=== PATIENT | female | born 1940 | race Two or more races ===

== ENCOUNTER 2022-03-10 11:59 | Outpatient (REF) | payer MEDICARE, SELFPAY ==
[2022-03-10 12:48] LABS: Influenza A PCR NEGATIVE (Negative); Influenza B PCR NEGATIVE (Negative); Resp Syncy Virus RNA Qual PCR NEGATIVE (Negative); SARS COV2 PCR INHOUSE NEGATIVE (Negative)
== END 2022-03-10 12:00 | disposition home or self-care (01) ==
LOC: HO.LNP 11:59
PROVIDERS: Visit Provider Physician Assistant
DX: Z20.822 Contact with and (suspected) exposure to COVID-19 (principal); R53.81 Other malaise
CPT/HCPCS: 0241U

== ENCOUNTER 2022-09-17 09:28 | Outpatient (REF) | payer MEDICARE, SELFPAY ==
[2022-09-17 11:12] LABS: MANUAL DIFF FLAG NO
[2022-09-17 11:20] LABS: Basophils Percent Auto 0.6 % (0-2); Eosinophils Absolute Auto 0.1 X10*3/uL (0.0-0.4); Eosinophils Percent Auto 2.7 % (0-4); Hematocrit 38.1 % (37.0-47.0); Hemoglobin 12.2 g/dl (12.0-16.0); Imm Gran Abs Auto 0.01 X10*3/uL (0.00-0.03); Imm Gran Pct Auto 0.2 % (0.0-0.4); Lymphocytes Absolute Auto 1.3 X10*3/uL (1.2-4.9); Lymphocytes Percent Auto 24.3 % (20-40); Mean Corpuscular Volume 87.6 fL (80.0-98.0); Monocytes Absolute Auto 0.4 X10*3/uL (0.1-1.2); Monocytes Percent Auto 7.5 % (2-11); Neutrophils Absolute Auto 3.4 x10*3/uL (2.0-8.3); Neutrophils Percent Auto 64.7 % (45-73); Platelet Count 120 X10*3/uL (160-400); Red Blood Count 4.35 X10*6/uL (4.20-5.50); Red Cell Distribution Width 14.8 % (11.0-16.0); White Blood Count 5.2 X10*3/uL (4.8-10.8)
[2022-09-17 13:06] LABS: Alanine Aminotransferase 18 U/L (0-31); Anion Gap 13 (12-20); Aspartate Amino Transferase 24 U/L (5-31); Blood Urea Nitrogen 21 mg/dL (9-16); Calcium 8.9 mg/dL (8.4-10.2); Carbon Dioxide 27 mmol/L (22-29); Chloride 105 mmol/L (96-108); Cholesterol 109 mg/dL; Estimated Glomerular Filt Rate > 60; Glucose Fasting 94 mg/dL (60-99); HDL Cholesterol 53 mg/dL; Iron 51 mcg/dL (30-160); LDL Cholesterol Calculated 40 mg/dl; Percent Iron Saturation 19 % (15-50); Potassium 3.8 mmol/L (3.3-5.1); Sodium 141 mmol/L (135-145); Total Iron Binding Capacity 270 mcg/dL (228-428); Triglycerides 80 mg/dL; Unsaturated Iron Binding 219 ug/dL
[2022-09-17 13:26] LABS: TSH reflex Free T4 2.88 uIU/mL (0.32-4.0); Vitamin D 25-OH Total 27.5 ng/mL (>30)
== END 2022-09-17 09:29 | disposition home or self-care (01) ==
LOC: HO.HMGCLDS 09:28
PROVIDERS: PCP Internal Medicine; Visit Provider Internal Medicine
DX: I48.0 Paroxysmal atrial fibrillation (principal); N18.30 Chronic kidney disease, stage 3 unspecified; D64.9 Anemia, unspecified; Z86.73 Personal history of transient ischemic attack (TIA), and cerebral infarction without residual deficits
CPT/HCPCS: 36415; 80048; 80061; 82306; 83540; 84443; 84450; 84460; 85025

== ENCOUNTER 2022-10-08 14:40 | Outpatient (AMB) | payer MEDICARE, SELFPAY ==
[2022-10-08 14:43] VITALS: BP 134/60; PULSE 69; O2SAT 95; BMI 21.7
--- NOTE | 2022-10-08 14:43 | MHC.PC.OV ---
Vital Signs 10/08/22 14:43 Height 5 ft Weight 111 lb BMI 21.7 BP 134/60 Blood Pressure Location Rt brachial Position Sitting Pulse 69 Pulse Source Pulse Oximeter Pulse Oximetry (%) 95 Oxygen Delivery Method Room Air Intake Visit Reasons: 3 Month follow up, needs PE booked for 2022 Intake Note: Pt is here today for her 3 months f/u and she also c/o a cough Allergies No Known Allergies Allergy (Verified 06/15/25 08:45) Medication List - Last Reconciled 12/01/22 by Aida Cheney MD apixaban (Eliquis) 2.5 mg PO BID ascorbate calcium (vitamin C) 500 mg PO DAILY atorvastatin 80 mg PO DAILY cholecalciferol (vitamin D3) 1,250 mcg PO QWEEK 3 months metoprolol succinate ER 25 mg PO DAILY Tobacco use date assessed: 10/08/22 Fall risk assessment: No Falls in past year Last assessed Fall Risk: 10/08/22 [facility] Medical History (Updated 03/15/25 @ 09:42 by Lucretia Woo NP) Cervicalgia Hyperlipidemia Hx of syncope Anticoagulated by anticoagulation treatment Vitamin D deficiency Anemia History of CVA (cerebrovascular accident) Paroxysmal atrial fibrillation Eczematous dermatitis Seasonal allergies Osteoarthritis Thrombocytopenia Aortic insufficiency Chronic left shoulder pain Right rotator cuff tear Surgical History History of repair of right rotator cuff Family History Other No significant family history Social History Housing: House Alcohol intake: never Patient Tobacco Use Status: Never used Tobacco e-Cigarette/Vaping Use: Never Used Second Hand Smoke Exposure: No service: No Current occupational status: retired 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 , 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 Current occupational exposures/hazards: No Hearing needs: No Vision needs: Yes Questionnaire Thrive Questionnaire Date Thrive assessed: 04/07/21 Physical exam (Primary Care) Vital Signs: Last Vital Signs Pulse 69 10/08/22 14:43 BP 134/60 10/08/22 14:43 Pulse Ox 95 10/08/22 14:43 Oxygen Delivery Method Room Air 10/08/22 14:43 BMI result Body Mass Index 21.7 Tobacco/Smoking Status: Tobacco use Status Tobacco use date assessed 10/08/22 10/08/22 15:44 Patient Tobacco Use Status Never used Tobacco 10/08/22 15:44 e-Cigarette/Vaping Use Never Used 10/08/22 15:44 Thrive Assessment: Date of Thrive Assessment Date Thrive assessed 04/07/21 10/08/22 15:44 Immunizations pneumoc 20-millie conj-dip cr(PF) 0.5 mL IM syringe Performing Provider: Aida Cheney MD Performing Location: [facility] Administered by: Ele Camacho CMA on 10/08/22 15:43 Dose Route Admin Location Dispensed Lot Number Expiration Date [facility] Quenching Car Operator 0.5 mL IM Right Deltoid 0.5 mL [id number] 01/04/24 [email or web address] Total Dispensed Waste 0.5 mL 0 % VIS Given Date VIS Provided VIS Publication Date 10/08/22 Single Vaccine 21 Eligibility Eligibility Date Funding Source Not [facility] Eligible 10/08/22 Private Coding Level of Care Code Admin Sign Off/No Billing Diagnoses Vitamin D deficiency E55.9 History of CVA (cerebrovascular accident) Z86.73 Paroxysmal atrial fibrillation I48.0 Thrombocytopenia D69.6
--- NOTE | 2022-10-08 15:43 | MHC.PC.OV ---
Vital Signs 10/08/22 14:43 Height 5 ft Weight 111 lb BMI 21.7 BP 134/60 Blood Pressure Location Rt brachial Position Sitting Pulse 69 Pulse Source Pulse Oximeter Pulse Oximetry (%) 95 Oxygen Delivery Method Room Air Intake Visit Reasons: 3 Month follow up, needs PE booked for 2022 Allergies No Known Allergies Allergy (Verified 12/01/22 01:03) Medication List - Last Reconciled 12/01/22 by Aida Cheney MD apixaban (Eliquis) 2.5 mg PO BID ascorbate calcium (vitamin C) 500 mg PO DAILY atorvastatin 80 mg PO DAILY cholecalciferol (vitamin D3) 1,250 mcg PO QWEEK 3 months metoprolol succinate ER 25 mg PO DAILY Tobacco use date assessed: 10/08/22 HPI 3 Month follow up, needs PE booked for 2022 HPI Details 82-year-old lady with history of CVA, paroxysmal atrial fibrillation, osteoarthritis, paroxysmal atrial fibrillation, chronic kidney disease stage 3, and osteoarthritis, here today for her follow-up. She has been feeling well, with no complaints at present time, compliant with taking her medications. Recent fasting labs done showed presence of normal hemoglobin hematocrit, with low platelet count, no abnormal bleeding tendencies reported her fasting lipids, fasting blood sugar level, electrolytes and renal function are within normal limits, but vitamin-D is low. . [facility] Medical History (Updated 12/01/22 @ 01:24 by Aida Cheney MD) Anemia Aortic insufficiency Chronic left shoulder pain Eczematous dermatitis History of CVA (cerebrovascular accident) Osteoarthritis Paroxysmal atrial fibrillation Right rotator cuff tear Seasonal allergies Thrombocytopenia Vitamin D deficiency Surgical History History of repair of right rotator cuff Family History Other No significant family history Social History Housing: House Alcohol intake: never Patient Tobacco Use Status: Never used Tobacco e-Cigarette/Vaping Use: Never Used Second Hand Smoke Exposure: No service: No Current occupational status: retired 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 , 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 Current occupational exposures/hazards: No Hearing needs: No Vision needs: Yes Questionnaire Thrive Questionnaire Date Thrive assessed: 04/07/21 Review of Systems Const Denies body aches, Denies fatigue, Denies fever(s) and Denies headache(s) Eyes Denies change in vision ENT Denies dizziness, Denies headache(s), Denies nasal congestion and Denies sore throat Card Denies chest pain, Denies lightheadedness, Denies palpitations and Denies dyspnea Resp Denies chest congestion, Denies cough, Denies dyspnea and Denies wheezing GI Denies abdominal pain, Denies change in bowel habits and Denies heartburn Denies hematuria, Denies urinary frequency, Denies dysuria and Denies urinary urgency Musc Reports no additional complaints Skin/Breast Denies breast pain, Denies breast mass, Denies lesions and Denies rash Neuro Denies dizziness and Denies headache(s) Endo Denies fatigue, Denies polydipsia, Denies polyuria and Denies palpitations Oskar/Lymph Denies easy bruising Aller/Immun Denies seasonal rhinorrhea and Denies wheezing Physical exam (Primary Care) Vital Signs: Last Vital Signs Pulse 69 10/08/22 14:43 BP 134/60 10/08/22 14:43 Pulse Ox 95 10/08/22 14:43 Oxygen Delivery Method Room Air 10/08/22 14:43 BMI result Body Mass Index 21.7 Tobacco/Smoking Status: Tobacco use Status Tobacco use date assessed 10/08/22 10/08/22 15:44 Patient Tobacco Use Status Never used Tobacco 10/08/22 15:44 e-Cigarette/Vaping Use Never Used 10/08/22 15:44 Thrive Assessment: Date of Thrive Assessment Date Thrive assessed 04/07/21 10/08/22 15:44 Const General: cooperative, comfortable and no acute distress Nutritional Appearance: average body habitus Orientation/consciousness: patient oriented x3 HENMT Ears: external ears normal General nose exam: Normal external nose present Mouth: Normal oral and palatal mucosa present, oropharynx normal and moist mucous membranes Neck Neck: Yes full ROM, Yes no lymphadenopathy and Yes supple Thyroid: Thyroid normal Resp Effort & Inspection: normal respiratory effort and able to speak in complete sentences Auscultation: clear to auscultation bilaterally Cardio Rate: regular rate Rhythm: regular rhythm Heart sounds: S1 normal heart sound present and S2 normal heart sound present GI Palpation (GI): Soft to palpation, nontender and no guarding Auscultation: normal bowel sounds Back/Spine/Pelvis Back: No back tenderness Skin General skin exam: no rashes or lesions noted Neuro General: patient oriented x3 and no focal motor deficits Extrem General: Yes full ROM, Yes no joint enlargement, Yes no pedal edema, Yes no calf tenderness and Yes normal gait Immunizations pneumoc 20-millie conj-dip cr(PF) Performing Provider: Aida Cheney MD Administered by: Ele Camacho CMA on 10/08/22 15:43 Dose Route Admin Location Lot Number Expiration Date [employer] 0.5 mL IM Right Deltoid [id number] 01/04/24 7006-8416-44 [email or web address] VIS Given Date VIS Provided VIS Publication Date 10/08/22 Single Vaccine 21 Eligibility Eligibility Date Funding Source Not [facility] Eligible 10/08/22 Private Results Reviewed Results Reviewed: Name: Dora Starkey Age/Sex: 81/F : 1940 Unit#: [id number] Attend Dr: Aida Cheney MD Re09/17/22 Status: DEP REF Location: [facility] Disch: SPEC : [id number] SOFÍA: 09/17/22 STATUS: COMP REQ : [id number] RECD: 09/17/22-[address]: Aida Cheney MD COMP: 09/17/22 ENTERED: 09/17/[address]: ORDERED: CBC Auto Diff Test Result Flag Reference Site WBC 5.2 4.8-10.8 X10*3/uL RBC 4.35 4.20-5.50 X10*6/uL HGB 12.2 12.0-16.0 g/dl HCT 38.1 37.0-47.0 % MCV 87.6 80.0-98.0 fL MCH 28.0 27.0-33.0 pg MCHC 32.0 31.0-35.0 g/dl RDW 14.8 11.0-16.0 % PLT 120 L 160-400 X10*3/uL MPV 11.0 9.4-12.3 fL Neut Pct Auto 64.7 45-73 % ImGran Pct Auto 0.2 0.0-0.4 % Lymp Pct Auto 24.3 20-40 % [place] Pct Auto 7.5 2-11 % Eos Pct Auto 2.7 0-4 % Baso Pct Auto 0.6 0-2 % NRBC Pct Auto 0.0 0.0-0.2 /100WBC ANC Neut Abs # 3.4 2.0-8.3 x10*3/uL ImGran Abs Auto 0.01 0.00-0.03 X10*3/uL Lymph Abs Auto 1.3 1.2-4.9 X10*3/uL [place] Abs Auto 0.4 0.1-1.2 X10*3/uL Eos Abs Auto 0.1 0.0-0.4 X10*3/uL Baso Abs Auto 0.0 0.0-0.2 X10*3/uL NRBC Abs Auto 0.000 0.0-0.012 X10*3/uL ENTERED: 09/17/[address] [facility] [address]: ORDERED: Met Prof Fast, IRON PROF, AST, ALT, Lipid Panel, Vitamin D 25-OH, TSH Rf Test Result Flag Reference Site Sodium 141 135-145 mmol/L Potassium 3.8 3.3-5.1 mmol/L CL 105 96-108 mmol/L CO2 27 22-29 mmol/L Gap 13 12-20 BUN 21 H 9-16 mg/dL Creat 0.74 0.5-1.4 mg/dL EGFR > 60 NOTE: For -[place] individuals, multiply the result by 1.210. Chronic Kidney Disease: Estimated GFR < 60 mL/min/1.73m2 Severe Kidney Disease: Estimated GFR < 15 mL/min/1.73m2 FBS 94 60-99 mg/dL CA 8.9 8.4-10.2 mg/dL Iron 51 30-160 mcg/dL TIBC 270 228-428 mcg/dL Saturation 19 15-50 % UIBC 219 ug/dL AST (GOT) 24 5-31 U/L ALT (GPT) 18 0-31 U/L Triglyceride 80 mg/dL Desirable Triglyceride: less than 150 mg/dL Borderline High Triglyceride 150-199 mg/dL High Triglyceride: 200-499 mg/dL Very High Triglyceride: greater than or equal to 5OO mg/dL Chol 109 mg/dL Desirable Cholesterol: less than 200 mg/dL Borderline High Cholesterol: 200-239 mg/dL High Cholesterol: greater than 239 mg/dL LDL Calculated 40 mg/dl Desirable LDL: less than 100 mg/dL Near Optimal/Above Optimal LDL: 110-129 mg/dL Borderline High LDL: 130-159 mg/dL High LDL: 160-189 mg/dL Very High LDL: greater than or equal to 190 mg/dL HDL 53 mg/dL Desirable HDL: greater than 40 mg/dL Note: This HDL assay may give artificially low results in patients with liver disease. Vit D 25-OH Tot 27.5 >30 ng/mL Health Based Reference Values* < 20 ng/mL Deficient 20-30 ng/mL Insufficient > 30 ng/mL Sufficient Assessment and Plan Assessment & Plan (1) Vitamin D deficiency: Code(s): E55.9 - Vitamin D deficiency, unspecified Plan: Prescription sent for high-dose vitamin-D 3 replacement to take once a week for the next 3 months. He (2) Paroxysmal atrial fibrillation: Code(s): I48.0 - Paroxysmal atrial fibrillation Plan: Currently on apixaban 2.5 mg 1 tablet taken twice a day and metoprolol succinate ER 25 mg daily (3) Thrombocytopenia: Code(s): D69.6 - Thrombocytopenia, unspecified Plan: Currently symptomatic (4) Osteoarthritis: Code(s): M19.90 - Unspecified osteoarthritis, unspecified site Plan: Takes [id number] Tylenol as needed for joint pain (5) Need for pneumococcal 20-valent conjugate vaccination: Code(s): Z23 - Encounter for immunization Plan: prevnar 20 administered today Orders: Orders Alanine Aminotransferase 04/06/23 Z86.73 - Personal history of transient ischemic attack (TIA), and cerebral infarction without residual deficits, E55.9 - Vitamin D deficiency, unspecified Aspartate Amino Transferase 04/06/23 Z86.73 - Personal history of transient ischemic attack (TIA), and cerebral infarction without residual deficits, E55.9 - Vitamin D deficiency, unspecified Basic Metabolic Panel Fasting 04/06/23 Z86.73 - Personal history of transient ischemic attack (TIA), and cerebral infarction without residual deficits, E55.9 - Vitamin D deficiency, unspecified Lipid Panel 04/06/23 Z86.73 - Personal history of transient ischemic attack (TIA), and cerebral infarction without residual deficits, E55.9 - Vitamin D deficiency, unspecified Vitamin D 25-OH Total 04/06/23 Z86.73 - Personal history of transient ischemic attack (TIA), and cerebral infarction without residual deficits, E55.9 - Vitamin D deficiency, unspecified Pneumococcal 20 Immunization 10/08/22 Z23 - Encounter for immunization Medications: New cholecalciferol (vitamin D3) 1,250 mcg PO QWEEK 13 caps 0RF 3 months E55.9 - Vitamin D deficiency, unspecified Coding Level of Care Code Est Pt Level 4 (91348) Diagnoses Vitamin D deficiency E55.9 Paroxysmal atrial fibrillation I48.0 Thrombocytopenia D69.6 Osteoarthritis M19.90 Need for pneumococcal 20-valent conjugate vaccination Z23
== END 2022-10-08 16:18 | disposition home or self-care (01) ==
LOC: HO.HMGC 14:40
PROVIDERS: PCP Internal Medicine; Visit Provider Internal Medicine
DX: E55.9 Vitamin D deficiency, unspecified (principal); Z86.73 Personal history of transient ischemic attack (TIA), and cerebral infarction without residual deficits; I48.0 Paroxysmal atrial fibrillation; D69.6 Thrombocytopenia, unspecified
CPT/HCPCS: 90471; 90677; 99214; 99499

== ENCOUNTER 2022-10-22 12:14 | Outpatient (REF) | payer MEDICARE, SELFPAY ==
[2022-10-22 13:16] LABS: Influenza A PCR NEGATIVE (Negative); Influenza B PCR NEGATIVE (Negative); Resp Syncy Virus RNA Qual PCR NEGATIVE (Negative); SARS COV2 PCR INHOUSE NEGATIVE (Negative)
== END 2022-10-22 12:15 | disposition home or self-care (01) ==
LOC: HO.LNP 12:14
PROVIDERS: Visit Provider Internal Medicine
DX: Z20.822 Contact with and (suspected) exposure to COVID-19 (principal); R09.89 Other specified symptoms and signs involving the circulatory and respiratory systems
CPT/HCPCS: 0241U

== ENCOUNTER 2023-04-01 08:14 | Outpatient (REF) | payer MEDICARE, SELFPAY ==
[2023-04-01 12:24] LABS: Alanine Aminotransferase 17 U/L (0-31); Anion Gap 15 (12-20); Aspartate Amino Transferase 23 U/L (5-31); Blood Urea Nitrogen 15 mg/dL (9-16); Calcium 8.9 mg/dL (8.4-10.2); Carbon Dioxide 22 mmol/L (22-29); Chloride 109 mmol/L (96-108); Cholesterol 94 mg/dL; Estimated Glomerular Filt Rate > 60; Glucose Fasting 92 mg/dL (60-99); HDL Cholesterol 48 mg/dL; LDL Cholesterol Calculated 34 mg/dl; Potassium 3.8 mmol/L (3.3-5.1); Sodium 142 mmol/L (135-145); Triglycerides 62 mg/dL
[2023-04-01 12:59] LABS: Vitamin D 25-OH Total 8.7 ng/mL (>30)
== END 2023-04-01 08:15 | disposition home or self-care (01) ==
LOC: HO.WFDLDS 08:14
PROVIDERS: Visit Provider Internal Medicine
DX: E55.9 Vitamin D deficiency, unspecified (principal); Z86.73 Personal history of transient ischemic attack (TIA), and cerebral infarction without residual deficits
CPT/HCPCS: 36415; 80048; 80061; 82306; 84450; 84460

== ENCOUNTER 2023-04-07 11:23 | Outpatient (AMB) | payer MEDICARE, SELFPAY ==
--- NOTE | 2023-04-07 12:24 | A.OFFPC_ITS ---
<Statement entered by Aida Cheney MD - 10/08/25 00:05> This note has been administratively?closed. Vital Signs 04/07/23 12:25 Height 5 ft Weight 106 lb 4 oz BMI 20.7 BP 110/60 Blood Pressure Location Lt brachial Position Sitting Pulse 62 Pulse Source Pulse Oximeter Pulse Oximetry (%) 100 Oxygen Delivery Method Room Air Intake Visit Reasons: 6 month f/u Allergies No Known Allergies Allergy (Verified 06/15/25 08:45) Medication List - Last Reconciled 04/07/23 by Aida Cheney MD apixaban (Eliquis) 2.5 mg PO BID ascorbate calcium (vitamin C) 500 mg PO DAILY atorvastatin 80 mg PO DAILY benzonatate 100 mg PO BID PRN cholecalciferol (vitamin D3) 1,250 mcg PO QWEEK 3 months metoprolol succinate ER 25 mg PO DAILY Tobacco use date assessed: 04/07/23 Fall risk assessment: No Falls in past year Last assessed Fall Risk: 04/07/23 Dental Screening Dental Screen Date: 04/07/23 Did you have a dental visit in the last 12 months?: No Did you have a dental problem in the last 6 months where you did not have access to dental care?: No Was dental information given to patient?: No [facility] Medical History (Updated 03/15/25 @ 09:42 by Lucretia Woo NP) Cervicalgia Hyperlipidemia Hx of syncope Anticoagulated by anticoagulation treatment Vitamin D deficiency Anemia History of CVA (cerebrovascular accident) Paroxysmal atrial fibrillation Eczematous dermatitis Seasonal allergies Osteoarthritis Thrombocytopenia Aortic insufficiency Chronic left shoulder pain Right rotator cuff tear Surgical History History of repair of right rotator cuff Family History Other No significant family history Social History Housing: House Alcohol intake: never Patient Tobacco Use Status: Never used Tobacco e-Cigarette/Vaping Use: Never Used Second Hand Smoke Exposure: No service: No Current occupational status: retired 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 How often do you have a drink containing alcohol?: Never 3. How often do you have six or more drinks on one occasion?: Never Total Score: 0 Score Reviewed/Action Taken: Yes Physical exam (Primary Care) Vital Signs: Last Vital Signs Pulse 62 04/07/23 12:25 BP 110/60 04/07/23 12:25 Pulse Ox 100 04/07/23 12:25 Oxygen Delivery Method Room Air 04/07/23 12:25 BMI result Body Mass Index 20.7 Tobacco/Smoking Status: Tobacco use Status Tobacco use date assessed 04/07/23 04/07/23 12:29 Patient Tobacco Use Status Never used Tobacco 04/07/23 12:29 e-Cigarette/Vaping Use Never Used 04/07/23 12:29 Thrive Assessment: Date of Thrive Assessment Date Thrive assessed 04/07/21 04/07/23 12:29 Results Reviewed Results Reviewed: ENTERED: 04/01/[address]: ORDERED: Met Prof Fast, AST, ALT, Lipid Panel, Vitamin D 25-OH Test Result Flag Reference Site Sodium 142 135-145 mmol/L Potassium 3.8 3.3-5.1 mmol/L CL 109 H 96-108 mmol/L CO2 22 22-29 mmol/L Gap 15 12-20 BUN 15 9-16 mg/dL Creat 0.80 0.5-1.4 mg/dL EGFR > 60 NOTE: For -[place] individuals, multiply the result by 1.210. Chronic Kidney Disease: Estimated GFR < 60 mL/min/1.73m2 Severe Kidney Disease: Estimated GFR < 15 mL/min/1.73m2 FBS 92 60-99 mg/dL CA 8.9 8.4-10.2 mg/dL AST (GOT) 23 5-31 U/L ALT (GPT) 17 0-31 U/L Triglyceride 62 mg/dL Desirable Triglyceride: less than 150 mg/dL Borderline High Triglyceride 150-199 mg/dL High Triglyceride: 200-499 mg/dL Very High Triglyceride: greater than or equal to 5OO mg/dL Chol 94 mg/dL Desirable Cholesterol: less than 200 mg/dL Borderline High Cholesterol: 200-239 mg/dL High Cholesterol: greater than 239 mg/dL LDL Calculated 34 mg/dl Desirable LDL: less than 100 mg/dL Near Optimal/Above Optimal LDL: 110-129 mg/dL Borderline High LDL: 130-159 mg/dL High LDL: 160-189 mg/dL Very High LDL: greater than or equal to 190 mg/dL HDL 48 mg/dL Desirable HDL: greater than 40 mg/dL Note: This HDL assay may give artificially low results in patients with liver disease. Vit D 25-OH Tot 8.7 >30 ng/mL Health Based Reference Values* < 20 ng/mL Deficient 20-30 ng/mL Insufficient > 30 ng/mL Sufficient Coding Level of Care Code Admin Sign Off/No Billing Diagnoses Vitamin D deficiency E55.9 History of CVA (cerebrovascular accident) Z86.73 Thrombocytopenia D69.6 Aortic insufficiency I35.1 Anticoagulated by anticoagulation treatment Z79.01 Paroxysmal atrial fibrillation I48.0
[2023-04-07 12:25] VITALS: BP 110/60; PULSE 62; O2SAT 100; BMI 20.7
== END 2023-04-07 12:50 | disposition home or self-care (01) ==
PROVIDERS: Visit Provider Internal Medicine
DX: I48.0 Paroxysmal atrial fibrillation (principal); E55.9 Vitamin D deficiency, unspecified; D69.6 Thrombocytopenia, unspecified; I35.1 Nonrheumatic aortic (valve) insufficiency; Z79.01 Long term (current) use of anticoagulants; Z86.73 Personal history of transient ischemic attack (TIA), and cerebral infarction without residual deficits
CPT/HCPCS: 99499

== ENCOUNTER 2023-04-30 18:36 | Emergency (ER) | payer MEDICARE, SELFPAY ==
--- NOTE | ~2023-04-30 | XR_ITS ---
EXAMINATION: XR CHEST CLINICAL INFORMATION: Shortness of breath. COMPARISON: None available. TECHNIQUE: 2 views of the chest were obtained. FINDINGS: Normal appearance of the cardiomediastinal silhouette. Mild central peribronchial thickening and diffuse interstitial prominence. More focal subtle airspace opacity projecting over the right upper lobe. No pleural effusion or pneumothorax. Widening of the retrosternal clear space, suggesting hyperexpansion and air-trapping. Thoracic spondylosis. No acute osseous findings. XR/XR chest 2V IMPRESSION: Constellation of findings are suggestive of small airways disease versus atypical/viral infection with an early infiltrate in the right upper lobe. Recommend a follow-up imaging after treatment to ensure adequate resolution. 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
--- NOTE | 2023-04-30 19:06 | ED.GENADULT ---
HPI - General Adult General Chief complaint: Dyspnea Stated complaint: xrays, sent from urgent care Time Seen by Provider: 05/01/23 00:26 Source: patient and family Mode of arrival: ambulatory Limitations: no limitations History of Present Illness HPI narrative: ?82-year-old female with history of CVA, afib on Eliquis?here with complaints of chest congestion, shortness of breath intermittent for the last few weeks with no reports of fevers, chills, chest pain, leg swelling or leg pain. Patient was seen urgent care care was referred into the ER for further evaluation. Related Data Home Medications Medication Instructions Recorded Confirmed ascorbate calcium (vitamin C) 500 500 mg PO DAILY 11/01/20 04/07/23 mg tablet apixaban 2.5 mg tablet (Eliquis) 2.5 mg PO BID 04/27/22 04/07/23 atorvastatin 80 mg tablet 80 mg PO DAILY 04/27/22 04/07/23 metoprolol succinate 25 mg 25 mg PO DAILY 04/27/22 04/07/23 tablet,extended release 24 hr benzonatate 100 mg capsule 100 mg PO BID PRN 04/07/23 04/07/23 Previous Rx's Medication Instructions Recorded cholecalciferol (vitamin D3) 1,250 1,250 mcg PO QWEEK 3 months #13 10/08/22 mcg (50,000 unit) capsule caps cefuroxime axetil 500 mg tablet 500 mg PO BID #14 tabs 05/01/23 doxycycline monohydrate 100 mg 100 mg PO BID #14 caps 05/01/23 capsule Allergies Allergy/AdvReac Type Severity Reaction Status Date / Time No Known Allergies Allergy Verified 04/30/23 19:08 Review of Systems Review of Systems: Yes all other systems are reviewed and are negative Constitutional: Constitutional: Reports no additional constitutional complaints, Denies body ache(s), Denies chills, Denies fever(s), Denies headache(s) and Denies weakness Eyes: Eyes: Reports no additional eye complaints and Denies change in vision ENT: Reports system reviewed and no additional complaints, except as documented, Denies dizziness, Denies headache(s), Denies nasal congestion, Denies nasal discharge and Denies neck pain Cardiovascular: Cardiovascular: Reports no additional cardiovascular complaints, Denies chest pain, Denies leg edema and Reports dyspnea Respiratory: Respiratory: Reports no additional respiratory complaints, Reports cough and Reports dyspnea Gastrointestinal: Gastrointestinal: Reports no additional gastrointestinal complaints, Denies abdominal pain, Denies diarrhea, Denies nausea and Denies vomiting Genitourinary: Genitourinary: Reports no additional female genitourinary complaints and Denies urinary incontinence Musculoskeletal: Musculoskeletal: Reports no additional musculoskeletal complaints, Denies back pain, Denies arthralgias, Denies joint swelling, Denies neck pain, Denies numbness and Denies tingling Integumentary/Breasts: Skin/Breast: Reports system reviewed and no additional complaints, except as docu and Denies rash Neurologic: Reports system reviewed and no additional complaints, except as documented, Denies dizziness, Denies headache(s), Denies numbness, Denies tingling and Denies weakness PMFSH Past Medical History Attestation statement: The following information was validated with the patient. Source: old records reviewed and nursing notes reviewed Medical History Anemia Anticoagulated by anticoagulation treatment Aortic insufficiency Chronic left shoulder pain Eczematous dermatitis History of CVA (cerebrovascular accident) Osteoarthritis Paroxysmal atrial fibrillation Right rotator cuff tear Seasonal allergies Thrombocytopenia Vitamin D deficiency Surgical History History of repair of right rotator cuff Family History Family History Other No significant family history Social History Social History Housing: House Alcohol intake: never Patient Tobacco Use Status: Never used Tobacco e-Cigarette/Vaping Use: Never Used Second Hand Smoke Exposure: No Advance Directives: Yes Advance Directives Information Provided: No Advance Directives on File: No service: No Current occupational status: retired Current occupation: used to work as a [employer] , 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 Current occupational exposures/hazards: No Hearing needs: No Vision needs: Yes Physical Exam ED Vital Signs: Vital Signs - 24 hr 04/30/23 19:08 Temperature 98.1 F Pulse Rate 71 Respiratory Rate 17 Blood Pressure 134/59 L Pulse Oximetry 98 Oxygen Delivery Method Room Air BMI result Body Mass Index 20.5 Const General: cooperative, healthy appearing, comfortable and no acute distress Orientation/consciousness: patient oriented x3 Limitations: no limitations HENMT Head: Yes normal to inspection Ears: hearing grossly normal bilaterally and TM's normal bilaterally Throat: Yes posterior oropharynx normal, Yes tonsils normal and Yes uvula midline Eyes General: appearance normal, both eyes and all related structures Pupils: Equal, round and reactive pupils present Neck Neck: Yes normal visual inspection, Yes full ROM, Yes no lymphadenopathy and Yes no meningeal signs Chest Chest palpation & inspection: normal inspection of the chest Resp Other: Mild exp wheezing right side Effort & Inspection: normal respiratory effort Cardio Rate: regular rate Rhythm: regular rhythm Peripheral pulses: Peripheral pulses 2+ throughout GI Inspection: Yes normal to inspection Palpation (GI): Soft to palpation and nontender Skin General skin exam: no rashes or lesions noted Neuro General: patient oriented x3, moves all extremities and no meningeal signs Cranial nerves: Yes Equal, round and reactive pupils present Cognition (Neuro): normal cognition Gait exam (Neuro): Normal gait present Extrem General: Yes normal to inspection, Yes no pedal edema and Yes no calf tenderness Course Course Course Narrative: This is a rapid medical exam: Additional HPI, ROS, PE not included below will be deferred to primary provider. Patient is an 82-year-old female with history of CVA, afib on Eliquis presenting to the emergency department with complaint of cough and shortness of breath for the past few weeks, symptoms have progressively worsened. Daughter reports PCP keeps referring pt to urgent care, has been seen there approximately 4 times since onset of symptoms, but today provider felt patient required labs and CXR. Denies fevers. Plan: labs, CXR, EKG Reevaluation(s) Reevaluation #1: Chest x-ray consistent with right upper lobe pneumonia. No hypoxia or tachypnea. Patient is afebrile. Well-appearing. Patient be discharged home with course of antibiotics. Patient did have some mild expiratory wheezing so will give her albuterol MDI with teaching. Reviewed reviewed worrisome signs and symptoms of when to return to the emergency room. Comfortable plan for discharge home. Medical Decision Making Medical Decision Making [facility] Narrative: ?82-year-old female with history of CVA, afib on Eliquis?coming from urgent care with reports of cough and chest congestion was some intermittent shortness of breath for the last few weeks unrelieved with supportive care at home. Patient denies any fevers, chest pain, leg swelling or leg pain, vomiting or diarrhea. Will obtain labs, chest x-ray Differential Diagnosis Differential Diagnoses: The differential diagnosis associated with the presentation includes Pneumonia Low concern for PE, ACS, malignant Admission/Observation Consideration of admission/observation: Escalation of care including admission/observation considered Curb 65 score 1-low risk, PNA can be managed outpatient Lab Data MDM Lab Attestation statement: I reviewed the patient's lab results. 04/30/23 20:25 04/30/23 20:25 Labs: Lab Results 04/30/23 04/30/23 04/30/23 Range/Units 20:25 20:25 20:25 WBC 10.9 H (4.8-10.8) X10*3/uL RBC 3.84 L (4.20-5.50) X10*6/uL Hgb 11.0 L (12.0-16.0) g/dl Hct 34.1 L (37.0-47.0) % MCV 88.8 (80.0-98.0) fL MCH 28.6 (27.0-33.0) pg MCHC 32.3 (31.0-35.0) g/dl RDW 13.9 (11.0-16.0) % Plt Count 196 D (160-400) X10*3/uL MPV 10.8 (9.4-12.3) fL Immature Gran % (Auto) 0.3 (0.0-0.4) % Neut % (Auto) 69.0 (45-73) % Lymph % (Auto) 23.5 (20-40) % [place] % (Auto) 6.3 (2-11) % Eos % (Auto) 0.5 (0-4) % Baso % (Auto) 0.4 (0-2) % Lymph # (Auto) 2.6 (1.2-4.9) X10*3/uL [place] # (Auto) 0.7 (0.1-1.2) X10*3/uL Eos # (Auto) 0.1 (0.0-0.4) X10*3/uL Baso # (Auto) 0.0 (0.0-0.2) X10*3/uL Abs Immat Gran (auto) 0.03 (0.00-0.03) X10*3/uL Absolute Neuts (auto) 7.5 (2.0-8.3) x10*3/uL Absolute Nucleated RBC 0.000 (0.0-0.012) X10*3/uL Nucleated RBC % (auto) 0.0 (0.0-0.2) /100WBC PT 13.9 H (11.1-13.3) SEC INR 1.1 (0.9-1.1) Sodium 140 (135-145) mmol/L Potassium 4.0 (3.3-5.1) mmol/L Chloride 108 (96-108) mmol/L Carbon Dioxide 24 (22-29) mmol/L Anion Gap 12 (12-20) BUN 18 H (9-16) mg/dL Creatinine 0.71 (0.5-1.4) mg/dL Estim Creat Clear Calc 43.9 Estimated GFR > 60 Random Glucose 91 (60-115) mg/dL Calcium 8.9 (8.4-10.2) mg/dL Total Bilirubin 0.5 (0.0-1.0) mg/dL AST 26 (5-31) U/L ALT 20 (0-31) U/L Alkaline Phosphatase 104 (39-117) U/L Troponin I High Sens (<3.5-17.0) ng/L B-Natriuretic Peptide (<100) pg/mL Total Protein 7.5 (6.5-8.0) g/dL Albumin 3.6 (3.5-5.0) g/dL 04/30/23 04/30/23 Range/Units 20:25 20:25 WBC (4.8-10.8) X10*3/uL RBC (4.20-5.50) X10*6/uL Hgb (12.0-16.0) g/dl Hct (37.0-47.0) % MCV (80.0-98.0) fL MCH (27.0-33.0) pg MCHC (31.0-35.0) g/dl RDW (11.0-16.0) % Plt Count (160-400) X10*3/uL MPV (9.4-12.3) fL Immature Gran % (Auto) (0.0-0.4) % Neut % (Auto) (45-73) % Lymph % (Auto) (20-40) % [place] % (Auto) (2-11) % Eos % (Auto) (0-4) % Baso % (Auto) (0-2) % Lymph # (Auto) (1.2-4.9) X10*3/uL [place] # (Auto) (0.1-1.2) X10*3/uL Eos # (Auto) (0.0-0.4) X10*3/uL Baso # (Auto) (0.0-0.2) X10*3/uL Abs Immat Gran (auto) (0.00-0.03) X10*3/uL Absolute Neuts (auto) (2.0-8.3) x10*3/uL Absolute Nucleated RBC (0.0-0.012) X10*3/uL Nucleated RBC % (auto) (0.0-0.2) /100WBC PT (11.1-13.3) SEC INR (0.9-1.1) Sodium (135-145) mmol/L Potassium (3.3-5.1) mmol/L Chloride (96-108) mmol/L Carbon Dioxide (22-29) mmol/L Anion Gap (12-20) BUN (9-16) mg/dL Creatinine (0.5-1.4) mg/dL Estim Creat Clear Calc Estimated GFR Random Glucose (60-115) mg/dL Calcium (8.4-10.2) mg/dL Total Bilirubin (0.0-1.0) mg/dL AST (5-31) U/L ALT (0-31) U/L Alkaline Phosphatase (39-117) U/L Troponin I High Sens 9.0 (<3.5-17.0) ng/L B-Natriuretic Peptide 134 H (<100) pg/mL Total Protein (6.5-8.0) g/dL Albumin (3.5-5.0) g/dL Independent Interpretation I performed an independent interpretation of an: Plain X-Ray Interpretation: I independently reviewed x-ray and agreed with radiology report I independetely reviewed EKG which shows normal sinus rhythm with a rate of 60, normal ME, normal QRS, normal QT Radiology Impression Discussion of test interpretation with radiology: I have reviewed the radiologist's reading. Radiologist Impression: he chest were obtained. FINDINGS: Normal appearance of the cardiomediastinal silhouette. Mild central peribronchial thickening and diffuse interstitial prominence. More focal subtle airspace opacity projecting over the right upper lobe. No pleural effusion or pneumothorax. Widening of the retrosternal clear space, suggesting hyperexpansion and air-trapping. Thoracic spondylosis. No acute osseous findings. XR/XR chest 2V IMPRESSION: Constellation of findings are suggestive of small airways disease versus atypical/viral infection with an early infiltrate in the right upper lobe. Recommend a follow-up imaging after treatment to ensure adequate resolution. ? 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 Independent Historian Clinical information obtained from an independent historian. History obtained from or confirmed by: Other (family member) Discharge Plan Discharge Clinical Impression: Community acquired pneumonia Patient Disposition: Home, Self-Care Instructions: Community Acquired Pneumonia (ED) Additional Instructions: Start the medicine tomorrow Use the inhaler every 4 hours as needed Return for worsening symptoms Prescriptions: New doxycycline monohydrate 100 mg capsule 100 mg PO BID Qty: 14 0RF cefuroxime axetil 500 mg tablet 500 mg PO BID Qty: 14 0RF No Action ascorbate calcium (vitamin C) 500 mg tablet 500 mg PO DAILY cholecalciferol (vitamin D3) 1,250 mcg (50,000 unit) capsule 1,250 mcg PO QWEEK 90 Days Qty: 13 0RF metoprolol succinate 25 mg tablet extended release 24 hr 25 mg PO DAILY Eliquis 2.5 mg tablet 2.5 mg PO BID atorvastatin 80 mg tablet 80 mg PO DAILY benzonatate 100 mg capsule 100 mg PO BID PRN Referrals: Aida Cheney MD [Primary Care Provider] - 10 days
[2023-04-30 19:08] VITALS: BP 134/59; PULSE 71; RESP 17; TEMP 36.7; O2SAT 98; BMI 20.5
--- NOTE | 2023-04-30 19:11 | ECG_ITS ---
Test Reason : SOB Blood Pressure : / mmHG Vent. Rate : 060 BPM Atrial Rate : 060 BPM P-R Int : 152 ms QRS Dur : 084 ms QT Int : 440 ms P-R-T Axes : 076 065 013 degrees QTc Int : 440 ms Normal sinus rhythm Nonspecific ST and T wave abnormality Abnormal ECG No previous ECGs available Referred By: Sheridan Long Electronically Signed By:SAM MCLEOD
--- NOTE | 2023-04-30 20:28 | MHC.EDTECH ---
PATIENT EKG TAKEN AND WAS READ BY PROVIDER ,BLOOD DRAWN AND SENT TO LAB .
[2023-04-30 20:30] LABS: MANUAL DIFF FLAG NO
[2023-04-30 20:32] LABS: Basophils Percent Auto 0.4 % (0-2); Eosinophils Absolute Auto 0.1 X10*3/uL (0.0-0.4); Eosinophils Percent Auto 0.5 % (0-4); Hematocrit 34.1 % (37.0-47.0); Imm Gran Abs Auto 0.03 X10*3/uL (0.00-0.03); Imm Gran Pct Auto 0.3 % (0.0-0.4); Lymphocytes Absolute Auto 2.6 X10*3/uL (1.2-4.9); Lymphocytes Percent Auto 23.5 % (20-40); Mean Corpuscular HGB Conc 32.3 g/dl (31.0-35.0); Mean Corpuscular Hemoglobin 28.6 pg (27.0-33.0); Mean Corpuscular Volume 88.8 fL (80.0-98.0); Mean Platelet Volume 10.8 fL (9.4-12.3); Monocytes Absolute Auto 0.7 X10*3/uL (0.1-1.2); Monocytes Percent Auto 6.3 % (2-11); Neutrophils Absolute Auto 7.5 x10*3/uL (2.0-8.3); Platelet Count 196 X10*3/uL (160-400); Red Blood Count 3.84 X10*6/uL (4.20-5.50); Red Cell Distribution Width 13.9 % (11.0-16.0); White Blood Count 10.9 X10*3/uL (4.8-10.8)
[2023-04-30 20:37] LABS: INTERNATIONAL NORM RATIO 1.1 (0.9-1.1); Prothrombin Time 13.9 SEC (11.1-13.3)
[2023-04-30 20:45] LABS: Alanine Aminotransferase 20 U/L (0-31); Albumin Level 3.6 g/dL (3.5-5.0); Alkaline Phosphatase 104 U/L (39-117); Anion Gap 12 (12-20); Aspartate Amino Transferase 26 U/L (5-31); Bilirubin Total 0.5 mg/dL (0.0-1.0); Blood Urea Nitrogen 18 mg/dL (9-16); Calcium 8.9 mg/dL (8.4-10.2); Carbon Dioxide 24 mmol/L (22-29); Chloride 108 mmol/L (96-108); Creatinine Clr Calc Pharmacy 43.9; Estimated Glomerular Filt Rate > 60; Glucose Random 91 mg/dL (60-115); Sodium 140 mmol/L (135-145); Total Protein 7.5 g/dL (6.5-8.0)
[2023-04-30 20:57] LABS: B Type Natriuretic Peptide 134 pg/mL (<100)
[2023-05-01] MEDS: Albuterol Sulfate 90 MCG 8 GM INHALER 2 PUFF INHALE (00:53)
[2023-05-01] MEDS: Doxycycline Monohydrate 100 MG CAPSULE PO (00:55)
[2023-05-01 00:58] VITALS: PULSE 70; O2SAT 98
== END 2023-05-01 01:06 | disposition home or self-care (01) ==
PROVIDERS: Registered Nurse Emergency; Emergency Provider Emergency Medicine; PCP Internal Medicine
DX: J18.9 Pneumonia, unspecified organism (principal); R06.02 Shortness of breath; I48.91 Unspecified atrial fibrillation; Z79.01 Long term (current) use of anticoagulants; Z79.899 Other long term (current) drug therapy
CPT/HCPCS: 36415; 71046; 80053; 83880; 84484; 85025; 85610; 93005; 94640; 99284; 99285

== ENCOUNTER → 2023-10-06 23:59 | Outpatient (BNV) | payer MEDICARE, SELFPAY | PROVIDERS: PCP Internal Medicine; Visit Provider Internal Medicine | DX: I60.9 Nontraumatic subarachnoid hemorrhage, unspecified (principal); R55 Syncope and collapse | CPT/HCPCS: G0180 ==

== ENCOUNTER 2023-10-08 09:34 | Outpatient (AMB) | payer MEDICARE, SELFPAY ==
[2023-10-08 09:45] VITALS: BP 122/60; PULSE 65; O2SAT 100; BMI 21.3
--- NOTE | 2023-10-08 09:45 | A.OFFPC_ITS ---
Vital Signs 10/08/23 09:45 Height 5 ft Weight 109 lb BMI 21.3 BP 122/60 Blood Pressure Location Lt brachial Position Sitting Pulse 65 Pulse Source Pulse Oximeter Pulse Oximetry (%) 100 Oxygen Delivery Method Room Air Intake Visit Reasons: HDF ~ Post hospital discharge FU Intake Note: Pt is here today for her HDF Allergies No Known Allergies Allergy (Verified 10/08/23 10:05) Medication List - Last Reconciled 10/08/23 by Aida Cheney MD apixaban (Eliquis) 2.5 mg PO BID ascorbate calcium (vitamin C) 500 mg PO DAILY atorvastatin 80 mg PO DAILY Tobacco use date assessed: 10/08/23 Fall risk assessment: No Falls in past year Last assessed Fall Risk: 10/08/23 Dental Screening Dental Screen Date: 10/08/23 Did you have a dental visit in the last 12 months?: Yes Did you have a dental problem in the last 6 months where you did not have access to dental care?: No Was dental information given to patient?: Patient has dentist HPI HDF ~ Post hospital discharge FU HPI Details 82-year-old lady with history of right M CA stroke, atrial fibrillation on Eliquis recently seen at the ER at [facility] for a syncopal episode on 09/10/2023. CT of head w/o contrast showed no hemorrhage, no midline shift or mass effect, no acute infarct seen, no fractures or suspicious bony lesions seen as well. Patient remained neurologically intact. She received Kcentra for Eliquis reversal and was transferred to [facility] [place]. Neurosurgery reports no indication for neurosurgical intervention and recommended to continue to hold Eliquis for at least 2 weeks pending risk re-evaluation with Cardiology. She was then seen by Cardiology who believed that the fall was vasovagal and will need an outpatient echocardiogram. Per Cardiology Eliquis could be restarted 09/20/2023 and was discharged with home physical therapy. Labs done on admission showed unremarkable findings except for mild anemia with a hemoglobin of 11 and hematocrit 34 %. Patient is now back home, has had no further episodes of syncope, has been feeling well and has already resumed taking her apixaban 2.5 mg twice a day. [facility] Medical History (Updated 10/10/23 @ 23:24 by Aida Cheney MD) Hyperlipidemia Hx of syncope Anticoagulated by anticoagulation treatment Vitamin D deficiency Anemia History of CVA (cerebrovascular accident) Paroxysmal atrial fibrillation Eczematous dermatitis Seasonal allergies Osteoarthritis Thrombocytopenia Aortic insufficiency Chronic left shoulder pain Right rotator cuff tear Surgical History History of repair of right rotator cuff Family History Other No significant family history Social History Housing: House Alcohol intake: never Patient Tobacco Use Status: Never used Tobacco e-Cigarette/Vaping Use: Never Used Second Hand Smoke Exposure: No service: No Current occupational status: retired 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 1. Little interest or pleasure in doing things: not at all 2. Feeling down, depressed, or hopeless: not at all 3. Trouble falling or staying asleep, or sleeping too much: not at all 4. Feeling tired or having little energy: not at all 5. Poor appetite or overeating: not at all 6. Feeling bad about yourself - or that you are a failure or have let yourself or your family down: not at all 7. Trouble concentrating on things, such as reading the newspaper or watching television: not at all 8. Moving or speaking so slowly that other people could have noticed. Or the opposite - being so fidgety or restless that you have been moving around a lot more than usual: not at all 9. Thoughts that you would be better off or of hurting yourself in some way: not at all Total score: 0 Depression Screening Interpretation: Negative Depression Screening Done: Yes 56578 - PHQ-9 Billing: Yes Source: Developed by Drs. Tuan Lemus, Beatris Degroot, Ian Rossi and colleagues, with an educational carie from [employer]. Thrive Questionnaire Date Thrive assessed: 10/08/23 I am a: Patient What is your living situation today?: I have a steady place to live Within the past 12 months, did the food you bought not last and you didn't have the money to get more?: Never true Within the past 12 months, did you worry whether your food would run out before you got money to buy more?: Never true Do you have trouble paying for medicines?: No Do you have trouble paying your heating and electricity bill?: No Do you have trouble taking care of your child, family member or friend?: No Do you have trouble with day-to-day activities such as bathing, preparing meals, shopping, managing finances, etc.?: No Are you currently unemployed and looking for a job?: No Are you interested in more education?: Yes Please select the resources that you would like help with: Education THRIVE Score: 0 AUDIT C Alcohol Use Questionnaire (AUDIT-C) 1. How often do you have a drink containing alcohol?: Never Total Score: 0 EVELIN-7 AMB Questionnaire EVELIN-7 Date EVELIN - 7 assessed: 10/08/23 Feeling nervous, anxious, or on edge: 0 = Not at all Not being able to stop or control worryin = Not at all Worrying too much about different things: 0 = Not at all Trouble relaxin = Not at all Being so restless that it is hard to sit still: 0 = Not at all Becoming easily annoyed or irritable: 1 = Several days Feeling afraid as if something awful might happen: 0 = Not at all Total EVELIN-7 score (0-4 normal; 5-9 mild; 10-14 moderate; 15-21 severe): 1 Source: Developed by Drs. Tuan Lemus, Beatris Degroot, Ian Rossi and colleagues, with an educational carie from [employer]. EVELIN-7 Assessment Billing EVELIN-7 Assessment Tool: EVELIN-7 Assessment 77294 Review of Systems Const Denies body aches, Denies fatigue, Denies fever(s) and Denies headache(s) Eyes Denies change in vision ENT Denies dizziness, Denies headache(s) and Denies nasal congestion Card Denies chest pain, Denies lightheadedness, Denies palpitations and Denies dyspnea Resp Denies chest congestion, Denies cough, Denies dyspnea and Denies wheezing GI Denies abdominal pain, Denies change in bowel habits and Denies heartburn Denies hematuria, Denies urinary frequency, Denies dysuria and Denies urinary urgency Musc Reports no additional complaints Skin/Breast Denies lesions and Denies rash Neuro Denies dizziness and Denies headache(s) Psych Reports no additional complaints Endo Denies fatigue, Denies polydipsia, Denies polyuria and Denies palpitations Oskar/Lymph Denies easy bruising Aller/Immun Denies seasonal rhinorrhea and Denies wheezing Physical exam (Primary Care) Vital Signs: Last Vital Signs Pulse 65 10/08/23 09:45 BP 122/60 10/08/23 09:45 Pulse Ox 100 10/08/23 09:45 Oxygen Delivery Method Room Air 10/08/23 09:45 BMI result Body Mass Index 21.3 Tobacco/Smoking Status: Tobacco use Status Tobacco use date assessed 10/08/23 10/08/23 09:52 Patient Tobacco Use Status Never used Tobacco 10/08/23 09:52 e-Cigarette/Vaping Use Never Used 10/08/23 09:52 PHQ-9: PHQ-9 Score PHQ-9: Total score 0 10/08/23 10:54 Depression Screening Interpretation: Negative Thrive Assessment: Date of Thrive Assessment Date Thrive assessed 10/08/23 10/08/23 10:54 Const General: cooperative, comfortable and no acute distress Nutritional Appearance: average body habitus Orientation/consciousness: patient oriented x3 HENMT Ears: external ears normal General nose exam: Normal external nose present Mouth: Normal oral and palatal mucosa present, oropharynx normal and moist mucous membranes Eyes General: appearance normal, both eyes and all related structures Neck Neck: Yes full ROM, Yes no lymphadenopathy and Yes supple Thyroid: Thyroid normal Resp Effort & Inspection: normal respiratory effort and able to speak in complete sentences Auscultation: clear to auscultation bilaterally Cardio Rate: regular rate Rhythm: regular rhythm Heart sounds: S1 normal heart sound present and S2 normal heart sound present GI Palpation (GI): Soft to palpation, nontender and no guarding Auscultation: normal bowel sounds Back/Spine/Pelvis Back: No back tenderness Skin General skin exam: no rashes or lesions noted Neuro General: patient oriented x3 and no focal motor deficits Extrem General: Yes full ROM, Yes no joint enlargement, Yes no pedal edema, Yes no calf tenderness and Yes normal gait Assessment and Plan Assessment & Plan (1) History of syncope: Code(s): Z87.898 - Personal history of other specified conditions Plan: Has had no episodes since discharge, patient feeling well, currently receiving home physical therapy (2) Vitamin D deficiency: Code(s): E55.9 - Vitamin D deficiency, unspecified Plan: Advised to start taking [id number] vitamin D3 at 2000 units daily. Ordered of vitamin-D level to be checked February 04 (3) Paroxysmal atrial fibrillation: Code(s): I48.0 - Paroxysmal atrial fibrillation Plan: Currently on apixaban 2.5 mg 1 tablet b.i.d. . Ordered a CBC in six-month (4) Hyperlipidemia: Code(s): E78.5 - Hyperlipidemia, unspecified Plan: Currently on atorvastatin 80 mg daily. 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, Z86.73 - Personal history of transient ischemic attack (TIA), and cerebral infarction without residual deficits, Z87.898 - Personal history of other specified conditions Alanine Aminotransferase 02/05/24 D69.6 - Thrombocytopenia, unspecified, E55.9 - Vitamin D deficiency, unspecified, I48.0 - Paroxysmal atrial fibrillation, 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, Z86.73 - Personal history of transient ischemic attack (TIA), and cerebral infarction without residual deficits, Z87.898 - Personal history of other specified conditions Vitamin D 25-OH Total 02/05/24 D69.6 - Thrombocytopenia, unspecified, E55.9 - Vitamin D deficiency, unspecified, I48.0 - Paroxysmal atrial fibrillation, Z79.01 - nursing home (current) use of anticoagulants, Z86.73 - Personal history of transient ischemic attack (TIA), and cerebral infarction without residual defic its, Z87.898 - Personal history of other specified conditions Aspartate Amino Transferase 02/05/24 D69.6 - Thrombocytopenia, unspecified, E55.9 - Vitamin D deficiency, unspecified, I48.0 - Paroxysmal atrial fibrillation, Z79.01 - nursing home (current) use of anticoagulants, Z86.73 - Personal history of transient ischemic attack (TIA), and cerebral infarction without residual deficits, Z87.898 - Personal history of other specified conditions Coding Level of Care Code Est Pt Level 4 (59627) Diagnoses History of syncope Z87.898 Vitamin D deficiency E55.9 Paroxysmal atrial fibrillation I48.0 Hyperlipidemia E78.5 Additional Codes EVELIN-7 Assessment Billing - EVELIN-7 Assessment Tool: EVELIN-7 Assessment 88077 ([id number])
== END 2023-10-08 12:02 | disposition home or self-care (01) ==
PROVIDERS: PCP Internal Medicine; Visit Provider Internal Medicine
DX: I48.0 Paroxysmal atrial fibrillation (principal); Z87.898 Personal history of other specified conditions; E55.9 Vitamin D deficiency, unspecified; E78.5 Hyperlipidemia, unspecified
CPT/HCPCS: 99214

== ENCOUNTER 2023-12-25 09:04 | Outpatient (AMB) | payer MEDICARE, SELFPAY ==
[2023-12-25 09:13] VITALS: BP 98/58; PULSE 77; TEMP 36.6; O2SAT 100; BMI 21.3
--- NOTE | 2023-12-25 09:13 | MHC.OFFWIV ---
Intake Vital Signs 12/25/23 09:13 Height 5 ft Weight 109 lb 4 oz BMI 21.3 BP 98/58 L Blood Pressure Location Lt brachial Position Sitting Pulse 77 Pulse Source Pulse Oximeter Temp 97.9 F Temp Source Oral Pulse Oximetry (%) 100 Intake Visit Reasons: EP Bronchitis Intake Note: Patient is here with bronchitits, a lot of phlegm and cough with headaches. Patient Tobacco Use Status: Never used Tobacco Allergies No Known Allergies Allergy (Verified 12/25/23 09:14) Do you need a note to return to daycare/school/sports/work: No HPI EP Bronchitis HPI Details Worsening cough and shortness of breath with sputum and nasal congestion x 7-10 days. Also headache and muscle aches. [facility] Medical History (Updated 12/25/23 @ 09:36 by Glenn Erickson MD) Hyperlipidemia Hx of syncope Anticoagulated by anticoagulation treatment Vitamin D deficiency Anemia History of CVA (cerebrovascular accident) Paroxysmal atrial fibrillation Eczematous dermatitis Seasonal allergies Osteoarthritis Thrombocytopenia Aortic insufficiency Chronic left shoulder pain Right rotator cuff tear Surgical History History of repair of right rotator cuff Family History Other No significant family history Social History Housing: House Alcohol intake: never Patient Tobacco Use Status: Never used Tobacco e-Cigarette/Vaping Use: Never Used Second Hand Smoke Exposure: No service: No Current occupational status: retired 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 , 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 Current occupational exposures/hazards: No Hearing needs: No Vision needs: Yes Review of Systems Const Reports chills, Denies fatigue, Reports fever(s), Denies headache(s) and Denies weakness ENT Details: Rhinitis Denies dizziness and Denies headache(s) Card Denies chest pain, Denies lightheadedness, Reports dyspnea and Denies other (Palpitations) Resp Details: See HPI Reports cough, Reports dyspnea and Denies other ( shortness of breath) Musc Denies numbness and Denies tingling Neuro Denies dizziness, Denies headache(s), Denies numbness, Denies tingling, Denies paresthesias and Denies weakness Psych Denies anxiety and Denies depression Endo Denies fatigue Physical Exam Vital Signs: Last Vital Signs Temp 97.9 F 12/25/23 09:13 Pulse 77 12/25/23 09:13 BP 98/58 L 12/25/23 09:13 Pulse Ox 100 12/25/23 09:13 BMI result Body Mass Index 21.3 Const General: no acute distress and well developed Nutritional Appearance: well nourished Orientation/consciousness: patient oriented x3 HEENT Head: Yes normocephalic and Yes atraumatic Eyes General: appearance normal, both eyes and all related structures Pupils: Equal, round and reactive pupils present EOM: EOMs intact bilaterally Resp Other: Pops wheezing and squeaks bilateral lung mayorga. Upper airway secretions as well Effort & Inspection: normal respiratory effort Auscultation: clear to auscultation bilaterally Cardio Rate: regular rate Rhythm: regular rhythm Heart sounds: S1 normal heart sound present, S2 normal heart sound present, no gallops, no murmurs and no rubs Neuro General: patient oriented x3 and gait normal Cranial nerves: Yes Equal, round and reactive pupils present Psych Affect: normal affect Assessment & Plan Assessment & Plan (1) Bronchitis: Code(s): J40 - Bronchitis, not specified as acute or chronic Plan: Likely bronchitis Will start prednisone and Z-Andi. Check chest x-ray to rule out pneumonia as this has been going on for over a week. Checking nasal swab to rule out viral illness though less likely as this has been going on for around 10 days Hydrate well Finish all medication Call or return to office if not improving or worsens at any time Go to the ED if breathing becomes difficult Orders: Orders XR chest 2V Today R05.9 - Cough, unspecified SARS-CoV2/FLU/RSV Today R05.9 - Cough, unspecified, Z20.822 - Contact with and (suspected) exposure to COVID-19 Medications: New azithromycin (Zithromax Z-Andi) take 500 mg today (day 1), then 250 mg for 4 days (days 2-5) PO 5 days 6 tabs 0RF prednisone 40 mg (2 x 20 mg) PO DAILY 5 days 10 tabs 0RF Coding Level of Care Code Est Pt Level 3 (36827) Diagnoses Bronchitis J40
== END 2023-12-25 10:51 | disposition home or self-care (01) ==
PROVIDERS: PCP Internal Medicine; Visit Provider Family Medicine
DX: J40 Bronchitis, not specified as acute or chronic (principal)
CPT/HCPCS: 99051; 99213

== ENCOUNTER 2023-12-25 10:13 | Outpatient (REF) | payer MEDICARE, SELFPAY ==
--- NOTE | ~2023-12-25 | XR_ITS ---
EXAMINATION: XR CHEST CLINICAL INFORMATION: Cough. COMPARISON: 04/30/2023 TECHNIQUE: 2 views of the chest were obtained. FINDINGS: Increased reticular markings predominate in a perihilar distribution. Similar appearance on prior. Favor chronic airways disease. Common considerations include asthma, bronchitis, smoking or early bronchiectasis. Some peripheral reticular markings are noted in the right upper lobe, likely sequela of prior pneumonia. Patchy airspace disease noted in the right upper lobe on 2022 exam has resolved. No new consolidation or effusion to suggest pneumonia. Heart and mediastinum within normal limits for technique. No mass or adenopathy. No edema. Nonobstructive gas pattern. Stable scoliosis. No acute fracture. XR/XR chest 2V IMPRESSION: Increased perihilar lung markings are chronic. Chronic airways disease is favored.
[2023-12-25 13:31] LABS: Influenza A PCR NEGATIVE (Negative); Influenza B PCR NEGATIVE (Negative); Resp Syncy Virus RNA Qual PCR NEGATIVE (Negative); SARS COV2 PCR INHOUSE NEGATIVE (Negative)
== END 2023-12-25 10:14 | disposition home or self-care (01) ==
LOC: HO.HMGCX 10:13
PROVIDERS: PCP Internal Medicine; Visit Provider Family Medicine
DX: R05.9 Cough, unspecified (principal); Z20.822 Contact with and (suspected) exposure to COVID-19
CPT/HCPCS: 0241U; 71046

== ENCOUNTER 2025-03-15 08:42 | Outpatient (AMB) | payer MEDICARE, MEDICAID, SELFPAY ==
--- OUTSIDE RECORDS SUMMARY | 2025-03-15 08:55 | XMS_ITS | Clinical Summary ---
Author Organization [facility] Address [address] [place] [address] Care Team Providers Care Cyber Legal Advisor Name Role Phone Aida Cheney MD Primary Care Provider [phone] Medications Eliquis 2.5 mg tablet TAKE 1 TABLET BY MOUTH TWICE A DAY 180 tablet 3 07/20/2024 Active Surgical History Surgery Date Site/Laterality Comments OTHER SURGICAL HISTORY PROCEDURE: CA PRQ TRANSLUMINAL MECHANICAL THROMBECTOMY VEIN SHOULDER SURGERY PROCEDURE: HISTORICAL SHOULDER SURGERY WRIST SURGERY Left PROCEDURE: HISTORICAL WRIST SURGERY Medical History Medical History Date Comments 2018 novel coronavirus disea se (COVID-19) 03/2022 DX:2019 novel coronavirus di sease (COVID-19) Acute chest pain DX:Acute chest pain Dyspnea DX:Dyspnea Recent cerebrovascular accident (CVA) DX:Recent cerebrovascular accident (CVA) Acute right MCA stroke (CMS/ HCC V24, CMS/HCC V28) DX:Acute right MCA stroke (H CC) Endocarditis, suspected DX:Endoc arditis, suspected Pulmonary infiltrates DX:Pulmona ry infiltrates Stroke (CMS/HCC V24, CMS/HCC V28) DX:Stroke ([facility]) Hypokalemia DX:Hypokalemia Primary osteoarthritis, left shoulder DX:Primary osteoarthritis, left shoulder Covid-19 03/2022 DX:COVID-19 Osteoarthritis of left shoulder DX:Osteoarthritis of left shoulder Family History Medical History Relation Name Comments Other: heart attack Father Other: heart attack Sister Relation Name Status Comments Father Sister Social History Tobacco Use Types Packs/Day Years Used Date Smoking Tobacco: Never Smokeless Tobacco: Never Alcohol Use Standard Drinks/Week Comments Never 0 (1 standard drink = 0.6 oz pur e alcohol) Comments Unknown Sex and Gender Information Value Date Recorded Sex Assigned at Not on file Legal Sex Female 5:25 PM EST Gender Identity Not on file Sexual Orientation Not on file Obstetrics History Last Filed Vital Signs Vital Sign Reading Time Taken Comments Blood Pressure 130/80 05/23/2024 7:54 AM EDT Pulse 59 05/23/2024 7:54 AM EDT Temperature - - Respiratory Rate - - Oxygen Saturation - - Inhaled Oxygen Concentration - - Weight 50.8 kg (112 lb) 05/23/2024 7:54 AM EDT Height 154.9 cm (5' 1 ) 05/23/2024 7:54 AM EDT Body Mass Index 21.16 05/23/2024 7:54 AM EDT Plan of Treatment Health Maintenance Due Date Last Done Comments DTaP,Tdap,and Td Vaccines (1 - Tdap) 1959 Pneumococcal Vaccine: 50+ Years (1 of 1 - PCV) 1990 Zoster Vaccines (1 of 2) 1990 RSV Immunization Adult Patients (1 - 1-dose 75+ series) 2015 Cholesterol Screening (Lipid Panel) 08/13/2022 Depression Screening 08/13/2022 Falls Risk Assessment 08/13/2022 Osteoporosis Screening (Bone Density Screening) 08/13/2022 Social Influencers of Health Screening 08/13/2022 COVID-19 Vaccine (3 - 2023-2 5 season) 2024 12/15/2020, 11/24/2020 Influenza Vaccine (#1) 2025 07/28/2024 HIB Vaccines Aged Out No longer eligi ble based on patient's age to complete this topic HPV Vaccines Aged Out No longer eligi ble based on patient's age to complete this topic Hepatitis A Vaccines Aged Out No long er eligible based on patient's age to complete this topic Hepatitis B Vaccines Aged Out No long er eligible based on patient's age to complete this topic IPV Vaccines Aged Out No longer eligi ble based on patient's age to complete this topic MMR Vaccines Aged Out No longer eligi ble based on patient's age to complete this topic Meningococcal ACWY Vaccine Aged Out N o longer eligible based on patient's age to complete this topic Meningococcal B Vaccine Aged Out No l onger eligible based on patient's age to complete this topic RSV Immunization Patients Under 20 months Aged Out No longer eligible b ased on patient's age to complete this topic Varicella Vaccines Aged Out No longer eligible based on patient's age to complete this topic Advance Directives Documents on File Type Date Recorded Patient Boiling Off Winder Expl anation Health Care Decision (hx) 04/21/2022 AD JONES DIRECTIVE Health Care Decision (hx) 04/21/2022 AD JONES DIRECTIVE Health Care Decision (hx) 04/21/2022 AD JONES DIRECTIVE Health Care Decision (hx) 04/10/2022 AD JONES DIRECTIVE Health Care Decision (hx) 04/10/2022 AD JONES DIRECTIVE Health Care Decision (hx) 04/10/2022 AD JONES DIRECTIVE Health Care Decision (hx) 04/10/2022 AD JONES DIRECTIVE Health Care Decision (hx) 04/01/2021 AD JONES DIRECTIVE Health Care Decision (hx) 04/01/2021 AD JONES DIRECTIVE Care Teams Cyber Legal Advisor Relationship Specialty Start Date End Date Aida Cheney MD [address] [place] [address] PCP - General Internal Medicine 05/01/22
--- OUTSIDE RECORDS SUMMARY | 2025-03-15 08:55 | XMS_ITS | Clinical Summary ---
Author Organization [facility] Address [address] [place] [id number] Care Team Providers Care Marine Diesel Technician Name Role Phone Aida Cheney MD Primary Care Provider [phone] Allergies Active Allergy Reactions Criticality Noted Date Comments Meperidine Nausea Only Low 06/17/2018 Penicillins Hives,Swelling,Other (See Comments) Medium 06/17/2018 As a child Medications Medication Sig Dispensed Refills Start Date End Date Status Ascorbic Acid (vitamin C) 1000 MG tablet Take 1,000 mg by mouth daily. 0 Active vitamin B-12 (CYANOCOBALAMIN) 500 MCG tablet Take 1,000 mcg by mouth daily. 0 Active acetaminophen (TYLENOL) 500 MG tablet Take 500 mg by mouth every 6 (six) hours as needed. 0 Active diphenhydrAMINE (BENADRYL) 25 mg capsule Take 25 mg by mouth every night at bedtime as needed for itching. 0 Active Hospital, Clinic, or Other Facility Administered Medication Ordered Dose Route Frequency Start Date End Date Status regadenoson (LEXISCAN) injection 0.4 mgIndications:Abnormal EKG,JACKSON (dyspnea on exertion),Bradycardia,Preop cardiovascular exam 0.4 mg IV Once 03/27/2021 Activ e Active Problems Problem Noted Date Diagnosed Date H/O seasonal allergies 03/18/2021 Abnormal EKG 03/18/2021 Elevated blood pressure read ing without diagnosis of hypertension 03/18/2021 Thrombocytopenia 03/18/2021 Rotator cuff tear arthropathy of left shoulder 0 09/26/2020 Chronic left shoulder pain 09/26/2020 Chronic right shoulder pain 09/26/2020 Traumatic rotator cuff tear, left, sequela 07/04 Arthritis of left glenohumeral joint 07/04/2020 Subacromial bursitis of right shoulder joint Impingement syndrome of left shoulder 06/20/2020 Traumatic complete tear of left rotator cuff Immunizations Name Administration Dates Next Due Covid-19 (Pfizer) Dilution Required 12/15/2020,0 11/24/2020 Family History Medical History Relation Name Comments Sudden Brother 1 Lung cancer Brother 2 throat and lung No Sig Med Hx Brother 3 Heart attack Father Fatal [place] Heart disease Father Stroke Father Breast cancer Mother Colon cancer Mother Uterine cancer Mother Cancer Sister 1 No Sig Med Hx Sister 2 No Sig Med Hx Sister 3 Relation Name Status Comments Brother 1 (Age 19) passed monico y in the [employer] [place] Brother 2 Brother 3 Alive Father (Age 74) Mother (Age 93) Passed monico y from old age Sister 1 (Age 76) Sister 2 Alive Sister 3 Alive Social History Tobacco Use Types Packs/Day Years Used Date Smoking Tobacco: Never Smokeless Tobacco: Never Alcohol Use Standard Drinks/Week Comments Never 0 (1 standard drink = 0.6 oz pur e alcohol) Sex and Gender Information Value Date Recorded Sex Assigned at Female 03/13/2021 8:30 AM EDT Gender Identity Female 03/13/2021 8:30 AM EDT Sexual Orientation Not on file Job Start Date Occupation Industry Not on file Not on file Not on file Last Filed Vital Signs Vital Sign Reading Time Taken Comments Blood Pressure 133/60 04/01/2021 10:06 AM EDT Pulse 61 04/01/2021 10:06 AM EDT Temperature 36.3 C (97.3 F) 04/01/2021 2:45 PM EDT Respiratory Rate 16 04/01/2021 10:06 AM EDT Oxygen Saturation 99% 04/01/2021 10:06 AM EDT Inhaled Oxygen Concentration - - Weight 56.7 kg (125 lb) 04/01/2021 9:53 AM EDT Height 152.4 cm (5') 04/01/2021 9:53 AM EDT Body Mass Index 24.41 04/01/2021 9:53 AM EDT Plan of Treatment Health Maintenance Due Date Last Done Comments Depression Screening 1952 Preventative Health Evaluation 1958 DTap / Tdap / Td (1 - Tdap) 1959 Shingrix-Zoster Vaccine (1 o f 2) 1990 Fall Risk Assessment 2005 Osteoporosis Screening (DEXA Scan) 2005 Pneumococcal Vaccine (1 of 1 - PCV) 2005 RSV Adult > 60+ Yrs or (1 - 1-dose 75+ series) 2015 COVID-19 Vaccine (3 - 2023-2 5 season) 2024 12/15/2020, 11/24/2020 Influenza Vaccine (#1) 2025 Hepatitis B Vaccines Aged Out No long er eligible based on patient's age to complete this topic RSV Ped < 20 months Aged Out No longe r eligible based on patient's age to complete this topic Advance Directives For more information, please contact: [phone] Documents on File Type Date Recorded 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 Care Teams Marine Diesel Technician Relationship Specialty Start Date End Date Aida Cheney MD [address] [place] [address] PCP - General Internal Medicine 03/18/21
[2025-03-15 09:04] VITALS: BP 128/70; PULSE 64; TEMP 36.7; O2SAT 97; BMI 22.9
--- NOTE | 2025-03-15 09:04 | MHC.OFFWIV ---
Intake Vital Signs 03/15/25 09:04 Height 5 ft Weight 117 lb 4 oz BMI 22.9 BP 128/70 Blood Pressure Location Rt brachial Position Sitting Pulse 64 Pulse Source Pulse Oximeter Temp 98.0 F Temp Source Oral Pulse Oximetry (%) 97 Oxygen Delivery Method Room Air Intake Visit Reasons: EP Pain from RT shoulder/neck, down to hip/leg Intake Note: Patient has pain dtjat raiates down her right side times a week. Patient Tobacco Use Status: Never used Tobacco Worksite Wellness Practitioner Required: No Is last menstrual period known: No Post menopausal: Yes Patient : No Allergies No Known Allergies Allergy (Verified 03/15/25 09:10) Do you need a note to return to daycare/school/sports/work: No HPI HPI Comments History of Present Illness Details 84 y/o Female patient who presents to the walk in clinic with c/o Right sided Neck pain that radiates down to her right Shoulder for 1 week now. Denies injury or trauma. She does have a Young Grand-son who she loves to pickup and hold on her Arms frequently. She has not tried any OTC pain medications, but she has used Heating Pads with some relief. [facility] Medical History (Updated 03/15/25 @ 09:42 by Lucretia Woo NP) Cervicalgia Hyperlipidemia Hx of syncope Anticoagulated by anticoagulation treatment Vitamin D deficiency Anemia History of CVA (cerebrovascular accident) Paroxysmal atrial fibrillation Eczematous dermatitis Seasonal allergies Osteoarthritis Thrombocytopenia Aortic insufficiency Chronic left shoulder pain Right rotator cuff tear Surgical History History of repair of right rotator cuff Family History Other No significant family history Social History Housing: House Alcohol intake: never Patient Tobacco Use Status: Never used Tobacco e-Cigarette/Vaping Use: Never Used Second Hand Smoke Exposure: No Patient : No service: No Current occupational status: retired 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[employer] , 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 Current occupational exposures/hazards: No Hearing needs: No Vision needs: Yes Review of Systems Const All systems reviewed & are unremarkable except as noted in HPI and below Physical Exam Vital Signs: Last Vital Signs Temp 98.0 F 03/15/25 09:04 Pulse 64 03/15/25 09:04 BP 128/70 03/15/25 09:04 Pulse Ox 97 03/15/25 09:04 Oxygen Delivery Method Room Air 03/15/25 09:04 BMI result Body Mass Index 22.9 Const General: no acute distress Nutritional Appearance: well nourished Orientation/consciousness: patient oriented x3 HEENT Head: Yes normocephalic Neck Neck: Yes normal visual inspection, Yes full ROM, Yes no lymphadenopathy, Yes trachea midline and Yes supple Resp Effort & Inspection: normal respiratory effort Auscultation: clear to auscultation bilaterally Cardio Heart sounds: S1 normal heart sound present and S2 normal heart sound present Back/Spine/Pelvis Cervical Spine: cervical ROM normal, cervical muscular tenderness, pain with cervical ROM, cervical spasm and Cervical spine tenderness Neuro General: patient oriented x3, gait normal and moves all extremities Psych Speech and movement: Normal speech and movement present Assessment & Plan Assessment & Plan (1) Cervicalgia: Code(s): M54.2 - Cervicalgia Plan: Ordered Acetaminophen for Pain relief Ice/Hot Rest Medications: New acetaminophen 1,000 mg (2 x 500 mg) PO Q6H 30 caps 0RF pain 7 days M54.2 - Cervicalgia Coding Level of Care Code Est Pt Level 4 (45692) Diagnoses Cervicalgia M54.2 Time Spent (min) 20
== END 2025-03-15 10:03 | disposition home or self-care (01) ==
PROVIDERS: PCP Internal Medicine; Visit Provider Nurse Practitioner Family
DX: M54.2 Cervicalgia (principal)

== ENCOUNTER → 2025-03-15 08:42 | Outpatient (BNVA) | payer MEDICARE, MEDICAID, SELFPAY | PROVIDERS: PCP Internal Medicine; Visit Provider Nurse Practitioner Family | DX: M54.2 Cervicalgia (principal) | CPT/HCPCS: 99212 ==

== ENCOUNTER 2025-06-15 08:40 | Outpatient (AMB) | payer MEDICARE, MEDICAID, SELFPAY ==
[2025-06-15 08:41] VITALS: BP 110/82; PULSE 74; RESP 16; TEMP 36.4; O2SAT 94; BMI 22.7
--- NOTE | 2025-06-15 08:41 | MHC.OFFWIV ---
Intake Vital Signs 06/15/25 08:41 Height 5 ft Weight 116 lb BMI 22.7 BP 110/82 Blood Pressure Location Lt brachial Position Sitting Respiration 16 Pulse 74 Pulse Source Pulse Oximeter Temp 97.6 F Temp Source Oral Pulse Oximetry (%) 94 Oxygen Delivery Method Room Air Intake Visit Reasons: EP bad cough/ chest itching Intake Note: Pt is here today c/o dry cough and bodyaches Patient Tobacco Use Status: Never used Tobacco Allergies No Known Allergies Allergy (Verified 06/15/25 08:45) HPI HPI Comments History of Present Illness Details This is an 84-year-old female who presented to the walk-in clinic complaining of body aches and diffuse pruritus x 3-4 days in the setting of dry cough x 11 days. Patient states she developed chest congestion and a dry cough about 11 days ago. She denies any sputum production at this time. She denies any nasal congestion or rhinorrhea. She denies any sore throat. She denies any fevers or chills. She denies any shortness of breath or chest pain although she does have mild right-sided chest wall pain associated with the cough. She reports itching of both ears but denies any otalgia. She tried [id number] guaifenesin, which was ineffective. Patient states she then started to develop diffuse body aches as well as itching about 3-4 days ago. She denies any rashes, throat swelling, chest tightness, or wheezing. She tried diphenhydramine, which was ineffective. Patient denies any known sick contacts. FORMERLY [facility] Medical History (Updated 03/15/25 @ 09:42 by Lucretia Woo NP) Cervicalgia Hyperlipidemia Hx of syncope Anticoagulated by anticoagulation treatment Vitamin D deficiency Anemia History of CVA (cerebrovascular accident) Paroxysmal atrial fibrillation Eczematous dermatitis Seasonal allergies Osteoarthritis Thrombocytopenia Aortic insufficiency Chronic left shoulder pain Right rotator cuff tear Surgical History History of repair of right rotator cuff Family History Other No significant family history Social History Housing: House Alcohol intake: never Patient Tobacco Use Status: Never used Tobacco e-Cigarette/Vaping Use: Never Used Second Hand Smoke Exposure: No service: No Current occupational status: retired 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 , 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 Current occupational exposures/hazards: No Hearing needs: No Vision needs: Yes Review of Systems Const All systems reviewed & are unremarkable except as noted in HPI and below Reports no additional complaints Eyes Reports no additional complaints ENT Reports no additional complaints Card Reports no additional complaints Resp Reports no additional complaints GI Reports no additional complaints Reports no additional complaints Musc Reports no additional complaints Skin/Breast Reports system reviewed and no additional complaints, except as documented Neuro Reports no additional complaints Psych Reports no additional complaints Endo Reports no additional complaints Oskar/Lymph Reports no additional complaints Aller/Immun Reports no additional complaints Physical Exam Vital Signs: Last Vital Signs Temp 97.6 F 06/15/25 08:41 Pulse 74 06/15/25 08:41 Resp 16 06/15/25 08:41 BP 110/82 06/15/25 08:41 Pulse Ox 94 06/15/25 08:41 Oxygen Delivery Method Room Air 06/15/25 08:41 BMI result Body Mass Index 22.7 Const Other: Vital signs reviewed. Constitutional: Non-toxic appearing. No acute distress. Well-developed and well-nourished. HEENT: Normocephalic and atraumatic. Tympanic membranes without erythema, edema, or bulging bilaterally. External auditory canals without erythema or edema bilaterally. Moist mucous membranes. No pharyngeal erythema or exudates. Skin: Warm and dry. No rashes or lesions noted. Neck: Full and painless range of motion. No cervical lymphadenopathy. Cardio: Regular rate and rhythm. No murmurs, gallops, or rubs. No lower extremity edema. No JVD. Very mild reproducible tenderness to palpation of the right anterior chest wall. Pulmonary: No respiratory distress. No accessory muscle usage. Clear to auscultation bilaterally without wheezing, crackles, or rhonchi. Gastrointestinal: Soft, nontender, and nondistended in all 4 quadrants. Musculoskeletal: Normal range of motion in joints throughout the body. No deformity or other signs of injury. Neuro: Alert and oriented x4. Cranial nerves 2-12 grossly intact. No focal deficits appreciated. Psych: Normal mood and affect. Assessment & Plan Assessment & Plan (1) Acute upper respiratory infection, unspecified: Code(s): J06.9 - Acute upper respiratory infection, unspecified Plan: This is an 84-year-old female who presented to the walk-in clinic complaining of dry cough x 11 days and body aches/pruritus x 3-4 days. On physical exam, she has mild right-sided chest wall tenderness, which likely indicates musculoskeletal strain in the setting of persistent cough. Her vital signs and physical exam are otherwise unremarkable with lungs clear to auscultation bilaterally and no rashes. History and physical most consistent with an acute viral upper respiratory tract infection; there is low concern for pneumonia or allergic reaction at this time. COVID/FLU/RSV sent. Patient offered chest x-ray to definitively rule out PNA; however, deferred at this time given lungs clear and no sputum production/purulence or fevers. Patient was given prescription for PO hydroxyzine 25 mg 3 times daily as needed for itching as well as PO benzonatate 100 mg 2-3 times daily as needed for cough. I also recommended symptomatic management including rest, increased fluids, tylenol for pain/fever, over the counter throat lozenges/decongestants, as well as humidification at bedtime. Patient advised to follow up here or go to the emergency room for worsening/persistent symptoms such as sputum production/purulence, fever/chills, or shortness of breath. Patient verbalized understanding and she is in agreement with the plan. Orders: Orders SARS-CoV2/FLU/RSV Today J06.9 - Acute upper respiratory infection, unspecified Medications: New hydroxyzine HCl 25 mg PO TID PRN 14 tabs 0RF itching benzonatate 100 mg PO BID-TID PRN 10 caps 0RF cough Coding Level of Care Code Est Pt Level 3 (16430) Diagnoses Acute upper respiratory infection, unspecified J06.9
--- OUTSIDE RECORDS SUMMARY | 2025-06-15 08:57 | XMS_ITS ---
Author Name [facility] Organization Unknown Encounters Encounter Type Encounter Reason Primary Diagnosis Location Date Ambulatory [facility] 01/14/2023 Care Team Organization Name Specialty Phone Email Start Date End [facility] Cardiologists SANTIAGO CEBALLOS Primary Care 05/30/2021 04/24/2024
--- OUTSIDE RECORDS SUMMARY | 2025-06-15 08:57 | XMS_ITS | Clinical Summary ---
Author Organization [facility] Address [address] [place] [id number] Care Team Providers Care Packaging Operator Name Role Phone Aida Cheney MD Primary Care Provider [phone] Allergies Active Allergy Reactions Criticality Noted Date [...] Hx Brother 3 Heart attack Father Fatal [place] Heart disease Father Stroke Father Breast cancer Mother Colon cancer Mother Uterine cancer Mother Cancer Sister 1 No Sig Med Hx Sister 2 No Sig Med Hx Sister 3 Relation Name Status Comments Brother 1 (Age 19) passed monico y in the [employer] war Brother 2 Brother 3 Alive Father [...] 75+ series) 2015 COVID-19 Vaccine (3 - 2024-2 6 season) 2025 12/15/2020, 11/24/2020 Influenza Vaccine (#1) 2025 Hepatitis B Vaccines Aged Out No long er eligible based on patient's age to complete this topic RSV Ped < 20 months Aged Out No longe r eligible based on patient's age to complete this topic Advance Directives For more information, please contact: [phone] Documents on File Type Date Recorded 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 Care Teams Packaging Operator Relationship Specialty Start Date End Date Aida Cheney MD [address] [place] [address] PCP - General Internal Medicine 03/18/21
== END 2025-06-15 09:19 | disposition home or self-care (01) ==
PROVIDERS: PCP Internal Medicine; Visit Provider Physician Assistant Medical
DX: J06.9 Acute upper respiratory infection, unspecified (principal)

== ENCOUNTER 2025-06-15 08:40 | Outpatient (REF) | payer MEDICARE, MEDICAID, SELFPAY ==
[2025-06-15 12:21] LABS: Resp Syncy Virus RNA Qual PCR NEGATIVE (Negative); SARS COV2 PCR INHOUSE NEGATIVE (Negative)
== END 2025-06-15 08:41 | disposition home or self-care (01) ==
LOC: HO.LNP 08:40
PROVIDERS: PCP Internal Medicine; Visit Provider Physician Assistant Medical
DX: J06.9 Acute upper respiratory infection, unspecified (principal); R05.9 Cough, unspecified; R09.89 Other specified symptoms and signs involving the circulatory and respiratory systems; R07.89 Other chest pain
CPT/HCPCS: 87637; 99212